=== PATIENT | female | born 1935 | race Caucasian/White ===

== ENCOUNTER 2020-07-24 16:23 | Emergency (ER) | payer MEDICARE, OTHER ==
[~2020-07-24] VITALS: Ht 165.1 cm; Wt 83.2 kg
--- NOTE | 2020-07-24 17:53 | NUR ---
PLEASE CONTACT FOR RIDE AND IN REGARDS TO ANY INFORMATION NEEDED [facility] #[phone]
--- NOTE | 2020-07-24 19:06 | NUR ---
Patient's son Jono . He lives out of the area.
[2020-07-24 20:07] VITALS: BP 191/91
--- NOTE | 2020-07-24 20:47 | NUR ---
spoke with sreedhar pts ride and caregiver and he stated that pt had been on the floor for 5 hours and couldnt talk when he arrived. MD made aware and pts neuro exam was unremarkable, pt was gait tested and is a&Ox4. pt is stable to be discharged.
--- NOTE | 2020-07-24 20:51 | NUR ---
left message with sreedhar to pick pt up
== END 2020-07-24 21:39 | disposition home or self-care (01) ==
LOC: ER 16:23
DX: S00.03XA Contusion of scalp, initial encounter (principal); S50.312A Abrasion of left elbow, initial encounter; W01.0XXA Fall on same level from slipping, tripping and stumbling without subsequent striking against object, initial encounter; Y93.89 Activity, other specified; Y92.89 Other specified places as the place of occurrence of the external cause; Y99.8 Other external cause status
CPT/HCPCS: 99284

== ENCOUNTER 2022-05-28 18:54 | Emergency (ER) | payer MEDICARE, OTHER ==
[~2022-05-28] VITALS: Ht 165.1 cm; Wt 68.2 kg
--- NOTE | 2022-05-28 20:04 | NUR ---
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
[2022-05-28 21:27] LABS: BASOPHILS % (AUTO) 0.2 % (0-1); EOSINOPHILS # (AUTO) 0.1 X10'3 (0-0.9); EOSINOPHILS % (AUTO) 1.1 % (0-6); HEMATOCRIT 42.5 % (35.0-45.0); HEMOGLOBIN 14.2 g/dl (12.0-16.0); LYMPHOCYTES # (AUTO) 0.4 X10'3 (1.1-4.8); LYMPHOCYTES % (AUTO) 3.6 % (21-51); MEAN CORPUSCULAR HGB CONC 33.4 g/dL (33.0-36.5); MEAN CORPUSCULAR VOLUME 89.9 FL (78-98); MONOCYTES # (AUTO) 0.3 X10'3 (0-0.9); MONOCYTES % (AUTO) 2.7 % (2-12); NEUTROPHILS # (AUTO) 10.8 X10'3 (1.8-7.7); NEUTROPHILS % (AUTO) 92.4 % (42-75); PLATELET COUNT 164 X10'3 (140-440); RED BLOOD COUNT 4.72 X10'6 (4.20-5.60); WHITE BLOOD COUNT 11.7 X10'3 (4.5-11.0)
[2022-05-28 21:45] LABS: ALANINE AMINOTRANSFERASE 26 U/L (12-78); ALBUMIN 3.3 G/DL (3.4-5.0); ALBUMIN/GLOBULIN RATIO 0.8 (1.1-1.5); ALKALINE PHOSPHATASE 78 IU/L (46-116); ANION GAP 10 (8-16); ASPARTATE AMINO TRANSFERASE 21 U/L (10-37); BILIRUBIN,TOTAL 0.3 MG/DL (0.1-1.0); BLOOD UREA NITROGEN 19 MG/DL (7-18); BUN/CREATININE RATIO 24.7 (6.6-38.0); CALCIUM 8.9 MG/DL (8.5-10.1); CHLORIDE 105 MMOL/L (99-107); CREATININE 0.77 MG/DL (0.40-0.90); GLUCOSE 133 MG/DL (70-104); POTASSIUM 4.8 MMOL/L (3.5-5.1); SODIUM 142 MMOL/L (135-145); TOTAL CARBON DIOXIDE 27.1 MMOL/L (24-32); TOTAL PROTEIN 7.7 G/DL (6.4-8.2); eGFR 71 ML/MIN
[2022-05-28] MEDS ORDERED: normal saline 1000ML IV soln IVB ONE (21:55)
[2022-05-28] MEDS ORDERED: quetiapine 100mg tablet PO SCH (22:00)
[2022-05-28 22:58] LABS: CLARITY,URINE SLIGHTLY CLOUDY (Clear); COLOR,URINE YELLOW (Yellow); GLUCOSE, URINE NEGATIVE (Neg); KETONES,URINE NEGATIVE (Neg); LEUKOCYTE ESTERASE ,URINE NEGATIVE (Neg); NITRITES, URINE NEGATIVE (Neg); OCCULT BLOOD,URINE NEGATIVE (Neg); PH,URINE 7.5 (4.8-8.0); PROTEIN,URINE NEGATIVE (Neg); UROBILINOGEN,URINE 0.2 E.U/dL (0.2-1.0)
[2022-05-28 23:04] LABS: UA COLLECTION TYPE STRAIGHT CATH
[2022-05-28 23:05] LABS: AMORPHOUS PHOSPHATES 2+; BACTERIA,URINE FEW /HPF (Neg); RBC,URINE NONE SEEN /HPF (0-2); SQUAMOUS EPITHELIAL CELL,UR FEW /LPF (FEW); WBC,URINE NONE SEEN /HPF (0-4)
[2022-05-28 23:26] VITALS: BP 142/88
[2022-05-29] MEDS ORDERED: quetiapine 100mg tablet PO SCH (21:00)
== END 2022-05-28 23:29 ==
LOC: ER 18:54
DX: N39.0 Urinary tract infection, site not specified (principal); E86.0 Dehydration; F03.90 Unspecified dementia, unspecified severity, without behavioral disturbance, psychotic disturbance, mood disturbance, and anxiety
CPT/HCPCS: 36415; 71045; 80053; 81001; 84145; 85025; 93005; 99285; J7030; 96360; A4353

== ENCOUNTER 2022-06-03 13:56 | Emergency (ER) | payer MEDICARE, OTHER ==
[~2022-06-03] VITALS: Ht 165.1 cm; Wt 68.2 kg
[2022-06-03] MEDS ORDERED: normal saline 1000ML IV soln IVB ONE (15:10)
--- NOTE | 2022-06-03 15:30 | NUR ---
TC FROM PATIENT'S SON, LOUISA GARDNER. CONDITION REPORT GIVEN. LOUISA WILL CALL BACK FOR CONDITION REPORT IN 2-3 HOURS.
[2022-06-03 16:09] LABS: ALANINE AMINOTRANSFERASE 25 U/L (12-78); ALBUMIN 3.1 G/DL (3.4-5.0); ALBUMIN/GLOBULIN RATIO 0.8 (1.1-1.5); ALKALINE PHOSPHATASE 75 IU/L (46-116); ANION GAP 8 (8-16); ASPARTATE AMINO TRANSFERASE 22 U/L (10-37); BILIRUBIN,TOTAL 0.3 MG/DL (0.1-1.0); BLOOD UREA NITROGEN 19 MG/DL (7-18); BUN/CREATININE RATIO 21.1 (6.6-38.0); CALCIUM 9.6 MG/DL (8.5-10.1); CHLORIDE 106 MMOL/L (99-107); GLUCOSE 82 MG/DL (70-104); MAGNESIUM 2.2 MG/DL (1.5-2.4); POTASSIUM 5.1 MMOL/L (3.5-5.1); SODIUM 137 MMOL/L (135-145); TOTAL CARBON DIOXIDE 23.4 MMOL/L (24-32); TOTAL PROTEIN 7.2 G/DL (6.4-8.2); eGFR 59 ML/MIN
[2022-06-03 16:09] LABS: RED CELL DISTRIBUTION WIDTH 13.9 % (11.5-14.5)
[2022-06-03 16:11] LABS: BASOPHILS # (AUTO) 0.1 X10'3 (0-0.2); BASOPHILS % (AUTO) 0.9 % (0-1); EOSINOPHILS # (AUTO) 0.7 X10'3 (0-0.9); HEMATOCRIT 40.8 % (35.0-45.0); HEMOGLOBIN 13.6 g/dl (12.0-16.0); LYMPHOCYTES # (AUTO) 1.9 X10'3 (1.1-4.8); LYMPHOCYTES % (AUTO) 26.2 % (21-51); MEAN CORPUSCULAR HEMOGLOBIN 30.3 PG (27.0-31.0); MEAN CORPUSCULAR HGB CONC 33.2 g/dL (33.0-36.5); MEAN CORPUSCULAR VOLUME 91.1 FL (78-98); MEAN PLATELET VOLUME 8.7 FL (7.4-10.4); MONOCYTES # (AUTO) 0.5 X10'3 (0-0.9); MONOCYTES % (AUTO) 6.4 % (2-12); NEUTROPHILS % (AUTO) 56.5 % (42-75); PLATELET COUNT 189 X10'3 (140-440); RED BLOOD COUNT 4.48 X10'6 (4.20-5.60); WHITE BLOOD COUNT 7.1 X10'3 (4.5-11.0)
[2022-06-03 16:54] LABS: CLARITY,URINE SLIGHTLY CLOUDY (Clear); COLOR,URINE YELLOW (Yellow); GLUCOSE, URINE NEGATIVE (Neg); KETONES,URINE NEGATIVE (Neg); LEUKOCYTE ESTERASE ,URINE MODERATE (Neg); NITRITES, URINE POSITIVE (Neg); OCCULT BLOOD,URINE SMALL (Neg); PROTEIN,URINE NEGATIVE (Neg); UROBILINOGEN,URINE 0.2 E.U/dL (0.2-1.0)
[2022-06-03 16:58] LABS: UA COLLECTION TYPE STRAIGHT CATH
[2022-06-03 16:59] LABS: WBC,URINE TNTC /HPF (0-4)
[2022-06-03 17:00] LABS: BACTERIA,URINE 3+ /HPF (Neg); MUCUS STRANDS NONE SEEN /LPF (Neg); RBC,URINE 0-2 /HPF (0-2); SQUAMOUS EPITHELIAL CELL,UR FEW /LPF (FEW); WBC CLUMPS,URINE FEW /HPF (NEGATIVE)
[2022-06-03] MEDS ORDERED: CefTRIAXone 2gm/D5W 50ml BAG 50 ML IV ONE (17:10)
[2022-06-03] MEDS ORDERED: LEVO-65 PO ×3 (17:43→17:50)
--- NOTE | 2022-06-03 18:03 | NUR ---
TC TO [facility] TO INFORM OF DC STATUS. CAREGIVER INFORMED OF DX AND TREATMENT PLAN. TRANSPORTATION WILL BE SECURED BY PATIENT'S SON, LOUISA GARDNER. [facility] IS AWARE THAT PATIENT IS BEING DISCHARGED THIS EVENING. TC TO LOUISA GARDNER FOR TO GIVE CONDITION REPORT, DX, AND PLAN OF CARE. TRANSPORTATION WILL BE PER NAIDA CARGO.
--- NOTE | 2022-06-03 20:03 | NUR ---
ATTEMPTED TO CALL [facility].
[2022-06-03 20:37] VITALS: BP 146/70
== END 2022-06-03 19:30 | disposition home or self-care (01) ==
LOC: ER 13:56
DX: N39.0 Urinary tract infection, site not specified (principal); M79.661 Pain in right lower leg; R53.83 Other fatigue; Z87.440 Personal history of urinary (tract) infections; Z79.2 Long term (current) use of antibiotics; Z60.2 Problems related to living alone
CPT/HCPCS: 36415; 71045; 73560; 80053; 81001; 83735; 84145; 85025; 85651; 86140; 87077; 87088; 87186; 96361; 96365; 99284; J0696; J7030; A4353